=== PATIENT | male | born 1960 | race Caucasian/White ===

== ENCOUNTER 2021-06-10 08:29 | Inpatient (IN) | payer MEDICAID ==
[2021-06-10] MEDS ORDERED: Ondansetron 4 MG/2 ML SDV IVPUSH PRN (09:07)
[2021-06-10] MEDS ORDERED: Sodium Chloride 0.9% 2.5 ML Syringe FLUSH PRN (09:07)
[2021-06-10] MEDS ORDERED: Morphine 2 MG/ML SYRINGE IVPUSH PRN (09:14)
[2021-06-10] MEDS ORDERED: Pantoprazole 40 MG Vial IV SCH (09:15)
--- NOTE | 2021-06-10 09:21 | PCM.HP.2 ---
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 He had mild nausea, no vomiting. He reports he has been passing gas and had BM yesterday, which was normal in size and shape. He denies chest pain or SOB. Reports never having something like this in the past. Unsure how accurate history is due to hx dementia. Patient reports pain is better now, but continues to have tenderness on palpation. In [place], labwork revealed, mild leukocytosis 11,200, hgb 15.2 hct 45.9, platelets 265. CRP 5.6. BUN 27, Cr 1.32 Na 136, K 4.7, LFTs WNL. CT abdomen/pelvis was obtained which revealed hx Shante-en-Y gastric bypass changes with distended small bowel loops with multiple air-fluid levels and decompressed terminal ileum. Transition point in the mid pelvis. COVID swab negative in [place], results on chart. UA negative. Lipase negative. In [place], he was treated with Toradol for pain along with LR 125 ml/hr IVFs. Transferred here for further evaluation and treatment, Dr. Osman consulted initially and Hospitalist to admit. Dr Osman notified of patient arrival. - Related Data Allergies/Adverse Reactions: Allergies Allergy/AdvReac Type Severity Reaction Status Date / Time Penicillins Allergy Other Verified 06/10/21 09:31 Home Medications: Home Meds Acetaminophen [Tylenol 8 Hour] 650 mg PO Q4H 06/10/21 [History] Ascorbic Acid 500 mg PO DAILY 06/10/21 [History] Brimonidine Tartrate/Timolol [Combigan Eye Drops] 1 drop EYEBOTH BID 06/10/21 [History] Calcium Carbonate 600 mg PO BID 06/10/21 [History] Calcium Carbonate [Calcium] 600 mg PO BID 06/10/21 [History] Cholecalciferol (Vitamin D3) [Vitamin D3] 125 mcg PO DAILY 06/10/21 [History] Citalopram [Citalopram HBr] 20 mg PO DAILY 06/10/21 [History] Cyanocobalamin (Vitamin B-12) [Vitamin B-12] 1,000 mcg IM ASDIRECTED 06/10/21 [History] Ferrous Sulfate 650 mg PO DAILY 06/10/21 [History] Finasteride 5 mg PO DAILY 06/10/21 [History] Latanoprost/Pf [Latanoprost 0.005% Eye Drop] 1 drop EYEBOTH BEDTIME 06/10/21 [History] Melatonin 6 mg PO BEDTIME 06/10/21 [History] Multivitamins/Min/Ca/FA/Iron [Thera-M] 1 each PO DAILY 06/10/21 [History] Omeprazole 20 mg PO ACBREAKFAST 06/10/21 [History] Promethazine [Phenergan] 25 mg PO Q6H 06/10/21 [History] QUEtiapine Fumarate [Seroquel] 50 mg PO BID 06/10/21 [History] Tamsulosin [Tamsulosin 24 Hr] 0.8 mg PO BEDTIME 06/10/21 [History] lisinopriL [Lisinopril] 20 mg PO DAILY 06/10/21 [History] H&P Review of Systems - Review of Systems: Review Of Systems: See Below General: Reports: No Symptoms. Denies: Fever, Chills, Malaise HEENT: Reports: No Symptoms. Denies: Headaches, Sinus Congestion Pulmonary: Denies: Shortness of Breath, Cough Cardiovascular: Denies: Chest Pain Gastrointestinal: Reports: Abdominal Pain (feeling improved), Constipation, Decreased Appetite, Nausea. Denies: Black Stool, Bloody Stool, Vomiting Genitourinary: Reports: No Symptoms. Denies: Dysuria, Frequency, Burning Musculoskeletal: Reports: No Symptoms Skin: Reports: No Symptoms Psychiatric: Reports: No Symptoms Neurological: Reports: No Symptoms Hematologic/Lymphatic: Reports: No Symptoms Immunologic: Reports: No Symptoms Exam - Exam Exam: See Below - Exam General: Alert, Oriented, Cooperative HEENT: Conjunctiva Clear, Mucosa Moist & [place], Pupils Equal Lungs: Clear to Auscultation, Normal Respiratory Effort Cardiovascular: Regular Rate, Regular Rhythm GI/Abdominal Exam: Soft, No Distention, Tender. No: Normal Bowel Sounds (hypoactive) Extremities: Normal Inspection, Normal Range of Motion, Non-Tender, No Pedal Edema Neuro Extensive - Mental Status: Alert, Oriented x3 Psychiatric: Alert, Normal Affect, Normal Mood - Patient Data Result Diagrams: 06/10/21 09:52 06/10/21 09:52 - Problem List (1) SBO (small bowel obstruction) SNOMED Code(s): 692935403 ICD Code: K56.609 - UNSP INTESTNL OBST, UNSP TO PARTIAL VERSUS COMPLETE OBST Status: Acute Current Visit: Yes (2) Abdominal pain SNOMED Code(s): 44261650 ICD Code: R10.9 - UNSPECIFIED ABDOMINAL PAIN Status: Acute Current Visit: Yes (3) History of Shante-en-Y gastric bypass SNOMED Code(s): 786911241 ICD Code: Z98.84 - BARIATRIC SURGERY STATUS Status: Chronic Current Visit: Yes (4) HTN (hypertension) SNOMED Code(s): 30501237 ICD Code: I10 - ESSENTIAL (PRIMARY) HYPERTENSION Status: Chronic Current Visit: Yes (5) History of anoxic brain injury SNOMED Code(s): 47892652029213307 ICD Code: Z86.69 - PERSONAL HISTORY OF DIS OF THE NERVOUS SYS AND SENSE ORGANS Status: Chronic Current Visit: Yes (6) Vascular dementia without behavioral disturbance SNOMED Code(s): 29312106369793597 ICD Code: F01.50 - VASCULAR DEMENTIA WITHOUT BEHAVIORAL DISTURBANCE Status: Chronic Current Visit: Yes (7) BPH (benign prostatic hyperplasia) SNOMED Code(s): 095985345 ICD Code: N40.0 - BENIGN PROSTATIC HYPERPLASIA WITHOUT LOWER URINRY TRACT SYMP Status: Chronic Current Visit: Yes Problem List Initiated/Reviewed/Updated: Yes Orders Last 24hrs: Active Orders 24 hr Category Date Time Status Patient Status [ADT] Routine ADT 06/10/21 09:07 Ordered Antiembolic Devices [RC] PER UNIT ROUTINE Care 06/10/21 09:09 Ordered Intake and Output [RC] QSHIFT Care 06/10/21 09:08 Ordered Notify Provider Consults [RC] ASDIRECTED Care 06/10/21 09:13 Ordered Oxygen Therapy [RC] PRN Care 06/10/21 09:07 Ordered VTE/DVT Education [RC] PER UNIT ROUTINE Care 06/10/21 09:07 Ordered Vital Signs [RC] Q4H Care 06/10/21 09:07 Ordered Consult to Physician [CONS] Routine Cons 06/10/21 09:07 Ordered BASIC METABOLIC PANEL,BMP [CHEM] AM Lab 06/11/21 05:11 Ordered CBC WITH AUTO DIFF [HEME] AM Lab 06/11/21 05:11 Ordered MAGNESIUM [CHEM] AM Lab 06/11/21 05:11 Ordered Lactated Ringers [Ringers, Lactated] 1,000 ml Med 06/10/21 09:15 Ordered IV Q8H Morphine Med 06/10/21 09:14 Ordered 3 mg IVPUSH Q2H PRN Ondansetron [Zofran] Med 06/10/21 09:07 Ordered 4 mg IVPUSH Q4H PRN Pantoprazole [ProTONIX IV] Med 06/10/21 09:15 Ordered 40 mg IV Q24H Sodium Chloride 0.9% [Saline Flush] Med 06/10/21 09:07 Ordered 2.5 ml FLUSH ASDIRECTED PRN Saline Lock Insert [OM.PC] Routine Oth 06/10/21 09:07 Ordered Sequential Compression Device [OM.PC] Per Unit Routine Oth 06/10/21 09:09 Ord ered Resuscitation Status Routine Resus Stat 06/10/21 09:07 Ordered Medication Orders Lactated Ringer's (Ringers, Lactated) 1,000 mls @ 125 mls/hr IV Q8H RUFINO Morphine Sulfate (Morphine 2 Mg/Ml Syringe) 3 mg IVPUSH Q2H PRN PRN Reason: Pain Ondansetron HCl (Ondansetron 4 Mg/2 Ml Sdv) 4 mg IVPUSH Q4H PRN PRN Reason: Nausea Pantoprazole Sodium (Pantoprazole 40 Mg Vial) 40 mg IV Q24H RUFINO Sodium Chloride (Sodium Chloride 0.9% 2.5 Ml Syringe) 2.5 ml FLUSH ASDIRECTED PRN PRN Reason: Keep Vein Open Assessment/Plan Comment:: This 60 year old male admitted with SBO 1. SBO - Consult Dr Osman, general surgery - Repeat labwork this am, including lactic acid - NPO - LR 125 - Morphine PRN pain - Zofran PRN nausea 2. HTN: - Monitor - On lisinopril at home. 3. BPH - Continue Finasteride and Flomax 4. Major depressive disorder/vascular dementia - Continue Seroquel and Celexa VTE prophylaxis: Lovenox GI prophylaxis: Protonix CODE STATUS: Full Code, confirmed with sister, (POA) at bedside with patient Dispo: 2 days pending improvement. - Mortality Measure Prognosis:: Good
[2021-06-10 10:14] LABS: BLOOD UREA NITROGEN,BUN 30 mg/dL (7.0-18.0); CARBON DIOXIDE,CO2 26.7 mmol/L (21.0-32.0); CHLORIDE,CL 107 mmol/L (98-107); GLUCOSE RANDOM 99 mg/dL (74-106); POTASSIUM,K 4.3 mmol/L (3.5-5.1); SODIUM,NA 140 mmol/L (136-148)
[2021-06-10] MEDS: Lactated Ringers 1,000 ML IV SCH ×2 (10:30→18:51)
[2021-06-10] MEDS: Pantoprazole 40 MG in Sodium Chloride 0.9% 10 ML IV SCH (10:34)
--- NOTE | 2021-06-10 12:36 | PCM.CONS ---
H&P History of Present Illness - General Date of Service: 06/10/21 Admit Problem/Dx: Admission Diagnosis/Problem Admission Diagnosis/Problem Small bowel obstruction Source of Information: Patient History Limitations: Reports: No Limitations - History of Present Illness Initial Comments - Free Text/Narative: Patient is a 60 year old male who presents with a SBO. His past medical history is significant for a RYGBP 20+ years ago as well as an abdominal hernia repair with mesh. He isn't very sure of his past medical history. His OSH records indicate he has HTN, borderline DM type 2, vascular dementia, and hx anoxic brain injury. He presented to an OSH with sharp abdominal pain yesterday. He reports he has been passing gas and had BM yesterday. While at the hospital he said he had an episode of emesis. His vitals were stable. He had a mild leukocytosis 11,200. His BUN was 27, Cr 1.32. CT abdomen/pelvis revealed hx Shante-en-Y gastric bypass changes with distended small bowel loops with multiple air-fluid levels and decompressed terminal ileum. Transition point in the mid pelvis. He was transferee here for further management. He has not vomited since arriving. Repeat labs showed resolution of his leukocytosis and a normal lactate. - Related Data Allergies/Adverse Reactions: Allergies Allergy/AdvReac Type Severity Reaction Status Date / Time Penicillins Allergy Other Verified 06/10/21 09:31 Home Medications: Home Meds Acetaminophen [Tylenol 8 Hour] 650 mg PO Q4H 06/10/21 [History] Ascorbic Acid 500 mg PO DAILY 06/10/21 [History] Brimonidine Tartrate/Timolol [Combigan Eye Drops] 1 drop EYEBOTH BID 06/10/21 [History] Calcium Carbonate 600 mg PO BID 06/10/21 [History] Calcium Carbonate [Calcium] 600 mg PO BID 06/10/21 [History] Cholecalciferol (Vitamin D3) [Vitamin D3] 125 mcg PO DAILY 06/10/21 [History] Citalopram [Citalopram HBr] 20 mg PO DAILY 06/10/21 [History] Cyanocobalamin (Vitamin B-12) [Vitamin B-12] 1,000 mcg IM ASDIRECTED 06/10/21 [History] Ferrous Sulfate 650 mg PO DAILY 06/10/21 [History] Finasteride 5 mg PO DAILY 06/10/21 [History] Latanoprost/Pf [Latanoprost 0.005% Eye Drop] 1 drop EYEBOTH BEDTIME 06/10/21 [History] Melatonin 6 mg PO BEDTIME 06/10/21 [History] Multivitamins/Min/Ca/FA/Iron [Thera-M] 1 each PO DAILY 06/10/21 [History] Omeprazole 20 mg PO ACBREAKFAST 06/10/21 [History] Promethazine [Phenergan] 25 mg PO Q6H 06/10/21 [History] QUEtiapine Fumarate [Seroquel] 50 mg PO BID 06/10/21 [History] Tamsulosin [Tamsulosin 24 Hr] 0.8 mg PO BEDTIME 06/10/21 [History] lisinopriL [Lisinopril] 20 mg PO DAILY 06/10/21 [History] Past Medical History HEENT History: Reports: Cataract, Glaucoma Cardiovascular History: Reports: High Cholesterol, Hypertension Respiratory History: Reports: None Gastrointestinal History: Reports: Hiatal Hernia, Other (See Below) Other Gastrointestinal History: admitted for small bowel obstruction Genitourinary History: Reports: None Musculoskeletal History: Reports: Back Pain, Chronic Neurological History: Reports: Migraines, Other (See Below) Other Neuro History: dementia Psychiatric History: Reports: Dementia Endocrine/Metabolic History: Reports: None Hematologic History: Reports: None Immunologic History: Reports: None Oncologic (Cancer) History: Reports: None Dermatologic History: Reports: None - Infectious Disease History Infectious Disease History: Reports: Mumps - Past Surgical History Head Surgeries/Procedures: Reports: None HEENT Surgical History: Reports: Tonsillectomy Cardiovascular Surgical History: Reports: None Respiratory Surgical History: Reports: None GI Surgical History: Reports: Appendectomy Male Surgical History: Reports: Circumcision Endocrine Surgical History: Reports: None Neurological Surgical History: Reports: Other (See Below) Other Neurological Surgeries/Procedures: back surgeries Musculoskeletal Surgical History: Reports: Other (See Below) Other Musculoskeletal Surgeries/Procedures:: 2 prior back surgeries Oncologic Surgical History: Reports: None Social & Family History - Family History HEENT: Reports: Cataract, Glaucoma Cardiac: Reports: High Cholesterol, Hypertension Respiratory: Reports: None GI: Reports: None : Reports: None OBGYN: Reports: None Musculoskeletal: Reports: None Neurological: Reports: Dementia Psychiatric: Reports: None Endocrine/Metabolic: Reports: Diabetes, type II Hematologic: Reports: None Immunologic: Reports: None Dermatologic: Reports: None Oncologic: Reports: None Other Oncologic Family History: patient not sure of cancer in family history - Tobacco Use Tobacco Use Status *Q: Former Tobacco User Years of Tobacco use: 10 Used Tobacco, but Quit: Yes Month/Year Tobacco Last Used: unk Second Hand Smoke Exposure: Yes - Caffeine Use Caffeine Use: Reports: Coffee, Soda - Recreational Drug Use Recreational Drug Use: No H&P Review of Systems - Review of Systems: Review Of Systems: Comprehensive ROS is negative, except as noted in HPI. Exam - Exam Exam: See Below - Vital Signs Vital Signs: Last Vital Signs Temp 35.8 C L 06/10/21 09:17 Pulse 65 06/10/21 09:17 Resp 18 06/10/21 09:17 BP 132/83 06/10/21 09:17 Pulse Ox 94 L 06/10/21 09:17 - Exam General: Alert, Oriented HEENT: Conjunctiva Clear, Mucosa Moist & [place], Posterior Pharynx Clear Lungs: Normal Respiratory Effort Cardiovascular: Regular Rate GI/Abdominal Exam: Soft, Non-Tender, No Distention, No Mass, Other (well healed incisions along midline abdomen and left and right upper quadrant. ) - Patient Data Lab Results Last 24 hrs: Laboratory Results - last 24 hr 06/10/21 06/10/21 06/10/21 Range/Units 09:52 09:52 09:52 WBC 8.76 (4.0-11.0) K/uL RBC 4.56 (4.50-5.90) M/uL Hgb 14.0 (13.0-17.0) g/dL Hct 41.4 (38.0-50.0) % MCV 90.8 (80.0-98.0) fL MCH 30.7 (27.0-32.0) pg MCHC 33.8 (31.0-37.0) g/dL RDW Std Deviation 44.9 (28.0-62.0) fl RDW Coeff of Shabnam 14 (11.0-15.0) % Plt Count 246 (150-400) K/uL MPV 9.00 (7.40-12.00) fL Neut % (Auto) 60.8 (48.0-80.0) % Lymph % (Auto) 25.5 (16.0-40.0) % [place] % (Auto) 9.7 (0.0-15.0) % Eos % (Auto) 3.9 (0.0-7.0) % Baso % (Auto) 0.1 (0.0-1.5) % Neut # (Auto) 5.3 (1.4-5.7) K/uL Lymph # (Auto) 2.2 (0.6-2.4) K/uL [place] # (Auto) 0.9 H (0.0-0.8) K/uL Eos # (Auto) 0.3 (0.0-0.7) K/uL Baso # (Auto) 0.0 (0.0-0.1) K/uL Nucleated RBC % 0.0 /100WBC Nucleated RBCs # 0 K/uL Sodium 140 (136-148) mmol/L Potassium 4.3 (3.5-5.1) mmol/L Chloride 107 (98-107) mmol/L Carbon Dioxide 26.7 (21.0-32.0) mmol/L BUN 30 H (7.0-18.0) mg/dL Creatinine 1.3 (0.8-1.3) mg/dL Est Cr Clr Drug Dosing TNP Estimated GFR (MDRD) 56.1 ml/min Glucose 99 (74-106) mg/dL Lactic Acid 1.2 (0.4-2.0) mmol/L Calcium 8.0 L (8.5-10.1) mg/dL Result Diagrams: 06/10/21 09:52 06/10/21 09:52 Sepsis Event Note - Evaluation Sepsis Screening Result: No Definite Risk - Focused Exam Vital Signs: Vital Signs Temp Pulse Resp BP Pulse Ox 06/10/21 09:17 35.8 C L 65 18 132/83 94 L Consult PN Assessment/Plan (1) SBO (small bowel obstruction) SNOMED Code(s): 822013755 Code(s): K56.609 - UNSP INTESTNL OBST, UNSP TO PARTIAL VERSUS COMPLETE OBST Current Visit: Yes Problem List Initiated/Reviewed/Updated: Yes Plan: I reviewed the CT images myself. There is possibly some mesh along the lower midline abdomen and adjacent to that area is some small bowel. I saw no evidence of a internal hernia and the gastric remnant did not appear distended. The patient is currently pain free and has no nausea. Likely he has a partial SBO likely due to adhesions. Would continue to keep the patient NPO and give IVF for today. If no return of bowel function in the next 24 hours, we may perform a Gastrografin challenge to see if this passes through the small bowel on abd ominal xrays.
[2021-06-10] MEDS ORDERED: Enoxaparin 40 MG/0.4 ML Syringe SUBCUT SCH (16:45)
[2021-06-10] MEDS ORDERED: Latanoprost 0.005% Ophth Soln 2.5 ML Bottle EYEBOTH SCH (21:00)
[2021-06-10] MEDS ORDERED: Tamsulosin 0.4 MG Cap.ER PO SCH (21:00)
[2021-06-10] MEDS: BRIMONIDINE TARTRATE EYEBOTH SCH (21:39)
[2021-06-10] MEDS: TIMOLOL EYEBOTH SCH (21:39)
[2021-06-11] MEDS: Lactated Ringers 1,000 ML IV SCH (03:16)
[2021-06-11 07:12] LABS: BLOOD UREA NITROGEN,BUN 18 mg/dL (7.0-18.0); CARBON DIOXIDE,CO2 28.3 mmol/L (21.0-32.0); CHLORIDE,CL 106 mmol/L (98-107); GLUCOSE RANDOM 85 mg/dL (74-106); POTASSIUM,K 3.8 mmol/L (3.5-5.1); SODIUM,NA 140 mmol/L (136-148)
[2021-06-11] MEDS ORDERED: Finasteride 5 MG Tab PO SCH (09:00)
[2021-06-11] MEDS ORDERED: Citalopram 20 MG Tab PO SCH (09:00)
[2021-06-11] MEDS ORDERED: Lisinopril 10 MG Tab PO SCH (09:00)
[2021-06-11] MEDS: BRIMONIDINE TARTRATE EYEBOTH SCH (09:03)
[2021-06-11] MEDS: TIMOLOL EYEBOTH SCH (09:03)
--- NOTE | 2021-06-11 09:18 | PCM.CONSN ---
- General Info Date of Service: 06/11/21 Subjective Update: Patient had 2 bowel movements last night. No pain this morning. No nausea or vomiting. Vitals stable. - Review of Systems General: Reports: No Symptoms Pulmonary: Reports: No Symptoms Cardiovascular: Reports: No Symptoms Gastrointestinal: Reports: No Symptoms - Patient Data Vitals - Most Recent: Last Vital Signs Temp 36.3 C 06/11/21 08:00 Pulse 61 06/11/21 08:00 Resp 16 06/11/21 08:00 BP 166/89 H 06/11/21 09:02 Pulse Ox 93 L 06/11/21 08:00 Weight - Most Recent: 128.775 kg I&O - Last 24 Hours: Intake & Output 06/10/21 06/11/21 06/11/21 22:59 06:59 14:59 Intake Total 0 2077 Output Total 1000 Balance 0 1077 Lab Results Last 24 Hours: Laboratory Results - last 24 hr 06/10/21 06/10/21 06/10/21 Range/Units 09:52 09:52 09:52 WBC 8.76 (4.0-11.0) K/uL RBC 4.56 (4.50-5.90) M/uL Hgb 14.0 (13.0-17.0) g/dL Hct 41.4 (38.0-50.0) % MCV 90.8 (80.0-98.0) fL MCH 30.7 (27.0-32.0) pg MCHC 33.8 (31.0-37.0) g/dL RDW Std Deviation 44.9 (28.0-62.0) fl RDW Coeff of Shabnam 14 (11.0-15.0) % Plt Count 246 (150-400) K/uL MPV 9.00 (7.40-12.00) fL Neut % (Auto) 60.8 (48.0-80.0) % Lymph % (Auto) 25.5 (16.0-40.0) % [place] % (Auto) 9.7 (0.0-15.0) % Eos % (Auto) 3.9 (0.0-7.0) % Baso % (Auto) 0.1 (0.0-1.5) % Neut # (Auto) 5.3 (1.4-5.7) K/uL Lymph # (Auto) 2.2 (0.6-2.4) K/uL [place] # (Auto) 0.9 H (0.0-0.8) K/uL Eos # (Auto) 0.3 (0.0-0.7) K/uL Baso # (Auto) 0.0 (0.0-0.1) K/uL Nucleated RBC % 0.0 /100WBC Nucleated RBCs # 0 K/uL Sodium 140 (136-148) mmol/L Potassium 4.3 (3.5-5.1) mmol/L Chloride 107 (98-107) mmol/L Carbon Dioxide 26.7 (21.0-32.0) mmol/L BUN 30 H (7.0-18.0) mg/dL Creatinine 1.3 (0.8-1.3) mg/dL Est Cr Clr Drug Dosing TNP Estimated GFR (MDRD) 56.1 ml/min Glucose 99 (74-106) mg/dL Lactic Acid 1.2 (0.4-2.0) mmol/L Calcium 8.0 L (8.5-10.1) mg/dL Magnesium (1.8-2.4) mg/dL 06/11/21 06/11/21 Range/Units 06:20 06:20 WBC 6.52 (4.0-11.0) K/uL RBC 4.55 (4.50-5.90) M/uL Hgb 13.8 (13.0-17.0) g/dL Hct 41.2 (38.0-50.0) % MCV 90.5 (80.0-98.0) fL MCH 30.3 (27.0-32.0) pg MCHC 33.5 (31.0-37.0) g/dL RDW Std Deviation 44.2 (28.0-62.0) fl RDW Coeff of Shabnam 13 (11.0-15.0) % Plt Count 246 (150-400) K/uL MPV 9.00 (7.40-12.00) fL Neut % (Auto) 50.6 (48.0-80.0) % Lymph % (Auto) 34.5 (16.0-40.0) % [place] % (Auto) 9.8 (0.0-15.0) % Eos % (Auto) 4.9 (0.0-7.0) % Baso % (Auto) 0.2 (0.0-1.5) % Neut # (Auto) 3.3 (1.4-5.7) K/uL Lymph # (Auto) 2.3 (0.6-2.4) K/uL [place] # (Auto) 0.6 (0.0-0.8) K/uL Eos # (Auto) 0.3 (0.0-0.7) K/uL Baso # (Auto) 0.0 (0.0-0.1) K/uL Nucleated RBC % 0.0 /100WBC Nucleated RBCs # 0 K/uL Sodium 140 (136-148) mmol/L Potassium 3.8 (3.5-5.1) mmol/L Chloride 106 (98-107) mmol/L Carbon Dioxide 28.3 (21.0-32.0) mmol/L BUN 18 (7.0-18.0) mg/dL Creatinine 1.1 (0.8-1.3) mg/dL Est Cr Clr Drug Dosing 77.40 Estimated GFR (MDRD) > 60.0 ml/min Glucose 85 (74-106) mg/dL Lactic Acid (0.4-2.0) mmol/L Calcium 8.3 L (8.5-10.1) mg/dL Magnesium 2.1 (1.8-2.4) mg/dL Med Orders - Current: Current Medications Citalopram Hydrobromide (Citalopram 20 Mg Tab) 20 mg PO DAILY [facility] Last Admin: 06/11/21 09:02 Dose: 20 mg Documented by: Enoxaparin Sodium (Enoxaparin 40 Mg/0.4 Ml Syringe) 40 mg SUBCUT Q24H [facility] Last Admin: 06/10/21 17:10 Dose: 40 mg Documented by: Finasteride (Finasteride 5 Mg Tab) 5 mg PO DAILY [facility] Last Admin: 06/11/21 09:02 Dose: 5 mg Documented by: Lactated Ringer's (Ringers, Lactated) 1,000 mls @ 125 mls/hr IV Q8H [facility] Last Admin: 06/11/21 03:16 Dose: 125 mls/hr Documented by: Pantoprazole Sodium 40 mg/ (Sodium Chloride) 10 mls @ 300 mls/hr IV Q24H [facility] Last Admin: 06/10/21 10:34 Dose: 300 mls/hr Documented by: Latanoprost (Latanoprost 0.005% Ophth Soln 2.5 Ml Bottle) 0 ml EYEBOTH BEDTIME [facility] Last Admin: 06/10/21 21:45 Dose: 1 drop Documented by: Lisinopril (Lisinopril 10 Mg Tab) 20 mg PO DAILY [facility] Last Admin: 06/11/21 09:02 Dose: 20 mg Documented by: Morphine Sulfate (Morphine 2 Mg/Ml Syringe) 3 mg IVPUSH Q2H PRN PRN Reason: Pain Ondansetron HCl (Ondansetron 4 Mg/2 Ml Sdv) 4 mg IVPUSH Q4H PRN PRN Reason: Nausea Brimonidine Tartrate /Timolol [Combigan 0 .2%-0.5% Eye Drop 1 each EYEBOTH BID [facility] Last Admin: 06/11/21 09:03 Dose: Not Given Documented by: Quetiapine Fumarate (Quetiapine 50 Mg Tab) 50 mg PO BID [facility] Last Admin: 06/11/21 09:01 Dose: 50 mg Documented by: Sodium Chloride (Sodium Chloride 0.9% 2.5 Ml Syringe) 2.5 ml FLUSH ASDIRECTED PRN PRN Reason: Keep Vein Open Tamsulosin HCl (Tamsulosin 0.4 Mg Cap.Er) 0.8 mg PO BEDTIME [facility] Last Admin: 06/10/21 21:19 Dose: 0.8 mg Documented by: - Exam General: Alert, Oriented HEENT: Pupils Equal, Pupils Reactive Lungs: Normal Respiratory Effort Cardiovascular: Regular Rate GI/Abdominal Exam: Soft, Non-Tender, No Distention, No Mass Extremities: Normal Inspection, Normal Range of Motion Sepsis Event Note - Evaluation Sepsis Screening Result: No Definite Risk - Focused Exam Vital Signs: Vital Signs Temp Pulse Resp BP BP BP Pulse Ox 06/11/21 09:02 166/89 H 06/11/21 08:00 36.3 C 61 16 166/89 H 93 L 06/11/21 03:13 36.3 C 66 16 165/83 H 96 06/10/21 23:53 36.9 C 65 17 165/86 H 96 06/10/21 21:17 36.6 C 65 16 167/89 H 97 Consult PN Assessment/Plan (1) SBO (small bowel obstruction) SNOMED Code(s): 589773100 Code(s): K56.609 - UNSP INTESTNL OBST, UNSP TO PARTIAL VERSUS COMPLETE OBST Current Visit: Yes Problem List Initiated/Reviewed/Updated: Yes Plan: Patient is feeling much better this morning and has had return of bowel function. Ok to advance diet as tolerated. Likely partial SBO caused by adhesions. Will sign off at this time, but if there are any issues or questions that arise, please call.
[2021-06-11] MEDS: Pantoprazole 40 MG in Sodium Chloride 0.9% 10 ML IV SCH (09:54)
--- NOTE | 2021-06-11 12:28 | PCM.DCSUM1 ---
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 Pt had nausea, no vomiting, been passing gas and had BM previous day. Denies chest pain or SOB. Reports never having something like this in the past. Unsure how accurate history is due to hx dementia. In [place], labwork revealed, mild leukocytosis 11,200, hgb 15.2 hct 45.9, platelets 265. CRP 5.6. BUN 27, Cr 1.32 Na 136, K 4.7, LFTs WNL. CT abdomen/pelvis was obtained which revealed hx Shante-en-Y gastric bypass changes with distended small bowel loops with multiple air-fluid levels and decompressed terminal ileum. Transition point in the mid pelvis. COVID swab negative in [place], results on chart. UA negative. Lipase negative. In [place], he was treated with Toradol for pain along with LR 125 ml/hr IVFs. Transferred here for further evaluation and treatment, Dr. Osman consulted initially and Hospitalist to admit. Patient was kept overnight n.p.o., given IV fluids and monitored. Following day patient was able to tolerate a clear liquid diet initially which was transitioned to a soft diet without any concerns. Patient had 2 bowel movements and was passing gas prior to discharge. Per surgery patient's partial small bowel obstruction was likely caused by adhesions. - Discharge Data Discharge Date: 06/11/21 Discharge Disposition: Home, Self-Care 01 Condition: Good - Referral to Home Health Primary Care Physician: Emeterio Huang MD - Patient Summary/Data Consults: Consultations 06/10/21 09:07 Consult to Physician [CONS] Routine - Patient Instructions Diet: Usual Diet as Tolerated Notify Provider of: Fever, Increased Pain, Nausea and/or Vomiting Other/Special Instructions: REPORT SYMPTOMS OF NAUSEA, VOMITING, ABDOMINAL PAIN, CONSTIPATION, DECREASED APPETITE TO PCP - Discharge Plan *PRESCRIPTION DRUG MONITORING PROGRAM REVIEWED*: Not Applicable *COPY OF PRESCRIPTION DRUG MONITORING REPORT IN PATIENT JANELL: Not Applicable Home Medications: Home Meds Acetaminophen [Tylenol 8 Hour] 650 mg PO Q4H 06/10/21 [History] Ascorbic Acid 500 mg PO DAILY 06/10/21 [History] Brimonidine Tartrate/Timolol [Combigan 0.2%-0.5% Eye Drops] 1 drop EYEBOTH BID 06/10/21 [History] Calcium Carbonate 600 mg PO BID 06/10/21 [History] Calcium Carbonate [Calcium] 600 mg PO BID 06/10/21 [History] Cholecalciferol (Vitamin D3) [Vitamin D3] 125 mcg PO DAILY 06/10/21 [History] Citalopram [Citalopram HBr] 20 mg PO DAILY 06/10/21 [History] Cyanocobalamin (Vitamin B-12) [Vitamin B-12] 1,000 mcg IM ASDIRECTED 06/10/21 [History] Ferrous Sulfate 650 mg PO DAILY 06/10/21 [History] Finasteride 5 mg PO DAILY 06/10/21 [History] Latanoprost/Pf [Latanoprost 0.005% Eye Drop] 1 drop EYEBOTH BEDTIME 06/10/21 [History] Melatonin 6 mg PO BEDTIME 06/10/21 [History] Multivitamins/Min/Ca/FA/Iron [Thera-M] 1 each PO DAILY 06/10/21 [History] Omeprazole 20 mg PO ACBREAKFAST 06/10/21 [History] Promethazine [Phenergan] 25 mg PO Q6H 06/10/21 [History] QUEtiapine Fumarate [Seroquel] 50 mg PO BID 06/10/21 [History] Tamsulosin [Flomax] 0.8 mg PO BEDTIME 06/10/21 [History] lisinopriL [Lisinopril] 20 mg PO DAILY 06/10/21 [History] - Discharge Summary/Plan Comment DC Time >30 min.: Yes - General Info Subjective Update: Patient states he feels better, patient states he was able to tolerate clear diet this morning denies nausea, vomiting, abdominal pain, fever, chills. - Review of Systems General: Denies: Fever, Chills Pulmonary: Denies: Shortness of Breath, Cough Cardiovascular: Denies: Chest Pain Gastrointestinal: Denies: Abdominal Pain, Decreased Appetite, Diarrhea, Difficulty Swallowing, Nausea, Vomiting - Patient Data Vitals - Most Recent: Last Vital Signs Temp 97.3 F 06/11/21 08:00 Pulse 61 06/11/21 08:00 Resp 16 06/11/21 08:00 BP 166/89 H 06/11/21 09:02 Pulse Ox 93 L 06/11/21 08:00 Weight - Most Recent: 283 lb 14.4 oz I&O - Last 24 hours: Intake & Output 06/10/21 06/11/21 06/11/21 22:59 06:59 14:59 Intake Total 0 2077 Output Total 1000 Balance 0 1077 Lab Results - Last 24 hrs: Laboratory Results - last 24 hr 06/11/21 06/11/21 Range/Units 06:20 06:20 WBC 6.52 (4.0-11.0) K/uL RBC 4.55 (4.50-5.90) M/uL Hgb 13.8 (13.0-17.0) g/dL Hct 41.2 (38.0-50.0) % MCV 90.5 (80.0-98.0) fL MCH 30.3 (27.0-32.0) pg MCHC 33.5 (31.0-37.0) g/dL RDW Std Deviation 44.2 (28.0-62.0) fl RDW Coeff of Shabnam 13 (11.0-15.0) % Plt Count 246 (150-400) K/uL MPV 9.00 (7.40-12.00) fL Neut % (Auto) 50.6 (48.0-80.0) % Lymph % (Auto) 34.5 (16.0-40.0) % [place] % (Auto) 9.8 (0.0-15.0) % Eos % (Auto) 4.9 (0.0-7.0) % Baso % (Auto) 0.2 (0.0-1.5) % Neut # (Auto) 3.3 (1.4-5.7) K/uL Lymph # (Auto) 2.3 (0.6-2.4) K/uL [place] # (Auto) 0.6 (0.0-0.8) K/uL Eos # (Auto) 0.3 (0.0-0.7) K/uL Baso # (Auto) 0.0 (0.0-0.1) K/uL Nucleated RBC % 0.0 /100WBC Nucleated RBCs # 0 K/uL Sodium 140 (136-148) mmol/L Potassium 3.8 (3.5-5.1) mmol/L Chloride 106 (98-107) mmol/L Carbon Dioxide 28.3 (21.0-32.0) mmol/L BUN 18 (7.0-18.0) mg/dL Creatinine 1.1 (0.8-1.3) mg/dL Est Cr Clr Drug Dosing 77.40 mL/min Estimated GFR (MDRD) > 60.0 ml/min Glucose 85 (74-106) mg/dL Calcium 8.3 L (8.5-10.1) mg/dL Magnesium 2.1 (1.8-2.4) mg/dL Med Orders - Current: Current Medications Citalopram Hydrobromide (Citalopram 20 Mg Tab) 20 mg PO DAILY [facility] Last Admin: 06/11/21 09:02 Dose: 20 mg Documented by: Enoxaparin Sodium (Enoxaparin 40 Mg/0.4 Ml Syringe) 40 mg SUBCUT Q24H [facility] Last Admin: 06/10/21 17:10 Dose: 40 mg Documented by: Finasteride (Finasteride 5 Mg Tab) 5 mg PO DAILY [facility] Last Admin: 06/11/21 09:02 Dose: 5 mg Documented by: Lactated Ringer's (Ringers, Lactated) 1,000 mls @ 125 mls/hr IV Q8H [facility] Last Admin: 06/11/21 03:16 Dose: 125 mls/hr Documented by: Pantoprazole Sodium 40 mg/ (Sodium Chloride) 10 mls @ 300 mls/hr IV Q24H [facility] Last Admin: 06/11/21 09:54 Dose: 300 mls/hr Documented by: Latanoprost (Latanoprost 0.005% Ophth Soln 2.5 Ml Bottle) 0 ml EYEBOTH BEDTIME [facility] Last Admin: 06/10/21 21:45 Dose: 1 drop Documented by: Lisinopril (Lisinopril 10 Mg Tab) 20 mg PO DAILY [facility] Last Admin: 06/11/21 09:02 Dose: 20 mg Documented by: Morphine Sulfate (Morphine 2 Mg/Ml Syringe) 3 mg IVPUSH Q2H PRN PRN Reason: Pain Ondansetron HCl (Ondansetron 4 Mg/2 Ml Sdv) 4 mg IVPUSH Q4H PRN PRN Reason: Nausea Brimonidine Tartrate /Timolol [Combigan 0 .2%-0.5% Eye Drop 1 each EYEBOTH BID [facility] Last Admin: 06/11/21 09:03 Dose: Not Given Documented by: Quetiapine Fumarate (Quetiapine 50 Mg Tab) 50 mg PO BID [facility] Last Admin: 06/11/21 09:01 Dose: 50 mg Documented by: Sodium Chloride (Sodium Chloride 0.9% 2.5 Ml Syringe) 2.5 ml FLUSH ASDIRECTED PRN PRN Reason: Keep Vein Open Tamsulosin HCl (Tamsulosin 0.4 Mg Cap.Er) 0.8 mg PO BEDTIME [facility] Last Admin: 06/10/21 21:19 Dose: 0.8 mg Documented by: - Exam General: Reports: Alert Lungs: Reports: Clear to Auscultation, Normal Respiratory Effort Cardiovascular: Reports: Regular Rate, Regular Rhythm GI/Abdominal Exam: Soft, Non-Tender, No Distention
== END 2021-06-11 13:27 | disposition home or self-care (01) | DRG 390 ==
LOC: MW.MS 08:29
PROVIDERS: ADMIT Student in an Organized Health Care Education/Training Program; ATTEND Student in an Organized Health Care Education/Training Program
DX: K56.51 Intestinal adhesions [bands], with partial obstruction (principal); E11.9 Type 2 diabetes mellitus without complications; F01.50 Vascular dementia, unspecified severity, without behavioral disturbance, psychotic disturbance, mood disturbance, and anxiety; N40.0 Benign prostatic hyperplasia without lower urinary tract symptoms; H40.9 Unspecified glaucoma; I10 Essential (primary) hypertension; Z20.822 Contact with and (suspected) exposure to COVID-19; Z98.84 Bariatric surgery status; Z79.899 Other long term (current) drug therapy; Z86.69 Personal history of other diseases of the nervous system and sense organs; Z79.4 Long term (current) use of insulin; Z98.42 Cataract extraction status, left eye; Z98.41 Cataract extraction status, right eye; Z87.19 Personal history of other diseases of the digestive system; Z90.49 Acquired absence of other specified parts of digestive tract; Z90.89 Acquired absence of other organs; Z98.890 Other specified postprocedural states
CPT/HCPCS: 36415; 80048; 83605; 83735; 85025; A9270-GY; C9113; J1650; J7120